=== PATIENT | female | born 1945 | race Caucasian/White ===

== ENCOUNTER 2019-03-20 10:13 | Day surgery (SDC) | payer MEDICARE, SELFPAY ==
[2019-03-19 13:13] VITALS: BMI 29.0
[2019-03-20 10:52] VITALS: BP 168/87; PULSE 80; RESP 17; TEMP 36.3; O2SAT 98
--- NOTE | 2019-03-20 11:16 | ANES.PREANES ---
Pre-Anesthetic Assessment Pre-Anesthetic Assessment: Height/Weight: Height 1.7 m Weight 83.915 kg Temp Pulse Resp BP Pulse Ox 97.4 F L 80 17 168/87 98 03/20/19 10:52 03/20/19 10:52 03/20/19 10:52 03/20/19 10:52 03/20/19 10:52 Preop Diagnosis: Abdominal wall wound Proposed Procedure: Operation Date: 03/20/19 11:55 Proposed Procedures p Debridement of anterior abdominal wall wound 42562 S31.109A(Not Applicable) - Bhargav Diaz MD Last intake: Intake Last Liquid Date 03/19/19 Last Liquid Time 19:00 Last Solid Date 03/19/19 Last Solid Time 19:00 Social: Comment: remote 50 years ago 2 pack years Exam: Pre-Anes Outpt Exam: alert, oriented x 3, clear to auscultation bilaterally and regular rate & rhythm Airway: Submandibular: WNL Cervical ROM: WNL MP: 1 Dentition: False Pulmonary: Pulmonary: Asthma Anesthetic Plan: ASA status: II PFSH Anesthesia PFSH: Social History (Updated 03/19/19 @ 13:10 by ArtBinder) Smoking and tobacco status: never smoked Alcohol intake: never Substance/Drug Use: never Adopted: No Caregiver/support person: Yes Lives independently: Yes Household members: spouse Housing: House Marital status: Highest education level completed: High School Graduate service: No Current occupational status: retired Current occupational exposures/hazards: No Pets and animals: Yes Pets & animals: cat(s) and dog(s) History of recent travel: No Sexually active: No Current gender identity: Female Marie/Evangelical: Spiritism Special marie needs: No Agree to transfusion: No Financial difficulty paying for basics: Decline to Answer Data Anesthesia Cardiac Studies: No Data to Display
--- NOTE | 2019-03-20 11:34 | PM.HPUD ---
H&P update H&P Update: DATE OF SURGERY/PROCEDURE: 03/20/19 DATE H&P PERFORMED: 03/15/19 H&P UPDATE INFORMATION: H&P completed within last 30 days and No changes to prior documentation PREOP DIAGNOSIS: Chronic abdominal wall wound with discharge PLANNED PROCEDURE: Operation Date: 03/20/19 11:55 Proposed Procedures p Debridement of anterior abdominal wall wound 51148 S31.109A(Not Applicable) - Bhargav Diaz MD Full H&P Perinent History: Family History: Family History (Updated 03/14/19 @ 12:07 by Trista Khan RN) Father Diabetes Denies family history of Anesthesia complication Bleeding disorder Social History: Social History Smoking and tobacco status: never smoked Alcohol intake: never Substance/Drug Use: never Adopted: No Caregiver/support person: Yes Lives independently: Yes Household members: spouse Housing: House Marital status: Highest education level completed: High School Graduate service: No Current occupational status: retired Current occupational exposures/hazards: No Pets and animals: Yes Pets & animals: cat(s) and dog(s) History of recent travel: No Sexually active: No Current gender identity: Female Marie/Hoahaoism: Islam Special marie needs: No Agree to transfusion: No Financial difficulty paying for basics: Decline to Answer
[2019-03-20] MEDS: clindamycin 600 MG/50 ML PREMIX 100 MG IV (11:57)
[2019-03-20] MEDS: lidocaine 2% INJ 20 mL INJECTION (12:10)
[2019-03-20] MEDS: neomycin-poly-bacitracin oint 28 gm 28 APPLIC (12:20)
--- NOTE | 2019-03-20 12:28 | PM.OP ---
Operative Report Date of procedure: 03/21/19 Pre-op Diagnosis: Chronic abdominal wall wound with discharge Post-op diagnosis: other Post-op Diagnosis: Stitch was revealed from the depth of the wound likely Ethibond Post sharp debridement measurement 3 x 2 x 2.2 cm debridement was done all the way to the subcutaneous layer Post-op Findings: Stitch sinus Procedure Done: Debridement of anterior abdominal wall wound Specimens removed/disposition: Tissues for cultures Stitch for pathology Surgeon: Bhargav Diaz Mobile Marketing Specialist: Chandni Khalil Circulating nurse Erica Anesthesia: MAC (dredge pipe operator Smart) and Local Estimated blood loss (mL): 5 Urine output (mL): 0 Complications: No immediate complication Findings: Stitch sinus Condition: stable Disposition: same day Brief History: This is a pleasant 73 years old female patient undergone remotely laparoscopic cholecystectomy by me, patient over the past couple of months or so started to develop a stitch sinus fever to the previous infraumbilical incision site and she did develop sutures coming out from the sinus, was not sure if this is related actually to the lap james surgery as it seems that the sinuses far down from the original incision, but I did world travel counselor the patient for wound debridement in the OR. Informed consent per Procedure: After identifying the patient holding area, the abdominal wound site was marked before the procedure by myself, patient was then taken to the operative suite, was placed in supine position, IV antibiotics were given per protocol,IV propofol was infused by the anesthesia provider, prep and drape of the wound region was done under the usual sterile technique. Time-out was done verifying the patient's name/date of /planned procedure and destination after the procedure, all were in agreement. Started by probing the sinus with mosquito forceps that went about centimeter and a half cephalad and about a centimeter caudad , that point I extended the sinus with a 15 blade knife following that excising the unhealthy indurated tissues of the wound took place and Ethibond-like suture was found that was removed and sent for pathology, sharp debridement was done all the way to the subcutaneous layer, followed by curettage, issues were sent for culture.Incision was created at the skin level and went all the way down to the subcutaneous tissues, wound was excised including unhealthy tissues Posterior lateral aspect of the right calf region Wound measurement ; Pre Debridement measurements; 0.2x0.2x0.5 Post-debridement measurement; 3 x 2 x 2[address] to the subcutaneous Debridement all the way to the healthier subcutaneous level Thorough irrigation of the wound was done with warm saline, followed by closure by Vicryl suture followed by continuous nylon suture then triple antibiotic ointment was applied followed by dry dressing. Patient tolerated the procedure well, count of instruments, needles and sponges were completed at the end of the procedure.Patient was then taken to the recovery area in stable condition. I was present for the whole entire procedure
[2019-03-20 12:32] VITALS: BP 129/70; PULSE 74; RESP 18; O2SAT 97
[2019-03-20 13:01] VITALS: BP 134/73; PULSE 74; RESP 18; O2SAT 98
[2019-03-20] MEDS: sodium chloride 0.9% 1,000 ML 30 ML IV (13:46)
== END 2019-03-20 13:30 | disposition home or self-care (01) ==
LOC: MEDSURG 12:46 → OR 13:03
PROVIDERS: Family Provider Registered Nurse; PCP Registered Nurse; Visit Provider Surgery
PROC: (CPT 11042; principal; 2019-03-20 11:55)
DX: S31.109A Unspecified open wound of abdominal wall, unspecified quadrant without penetration into peritoneal cavity, initial encounter (principal); X58.XXXA Exposure to other specified factors, initial encounter
CPT/HCPCS: 11042; 12345; 87070; 87077; 87176; 87186; 87205; 88305; J2001; J2704; J3010; J3490; J7030

== ENCOUNTER → 2019-04-20 11:08 | Outpatient (BNVA) | payer MEDICARE, SELFPAY | PROVIDERS: Family Provider Registered Nurse; PCP Registered Nurse; Visit Provider Registered Nurse | DX: S31.109A Unspecified open wound of abdominal wall, unspecified quadrant without penetration into peritoneal cavity, initial encounter (principal); X58.XXXA Exposure to other specified factors, initial encounter | CPT/HCPCS: 80053; 80061; 82306; 85025 ==

== ENCOUNTER → 2020-09-15 13:33 | Outpatient (BNVA) | payer MEDICARE, SELFPAY | PROVIDERS: Family Provider Registered Nurse; PCP Registered Nurse; Referring Provider Pediatrics; Visit Provider Orthopaedic Surgery | DX: M77.8 Other enthesopathies, not elsewhere classified (principal); M17.12 Unilateral primary osteoarthritis, left knee; M25.562 Pain in left knee | CPT/HCPCS: 73560; 73565 ==

== ENCOUNTER → 2020-10-14 11:10 | Day surgery (SDC) | payer MEDICARE, SELFPAY | PROVIDERS: PCP Registered Nurse; Visit Provider Orthopaedic Surgery | DX: Z01.818 Encounter for other preprocedural examination (principal) | CPT/HCPCS: 93005 ==

== ENCOUNTER → 2020-10-15 10:38 | Outpatient (BNVA) | payer MEDICARE, SELFPAY | PROVIDERS: PCP Registered Nurse; Visit Provider Orthopaedic Surgery | DX: Z01.812 Encounter for preprocedural laboratory examination (principal); Z20.822 Contact with and (suspected) exposure to COVID-19 | CPT/HCPCS: 87635 ==

== ENCOUNTER 2020-10-20 13:11 | Observation (INO) | payer MEDICARE, SELFPAY ==
--- NOTE | 2020-10-14 11:10 | ECG_ITS ---
[facility] Test Date: 2020-10-14 Pat Name: Radha Castillo Department: Room: Gender: Female Laboratory Sample Carrier: : 1945 Requested By: Dolores Marti Order Number: [id number] Saúl MD: Katelin Resendiz M.D. Measurements Intervals [place] Rate: 69 P: 25 VT: 132 QRS: -26 QRSD: 92 T: 48 QT: 392 QTc: 422 Interpretive Statements SINUS RHYTHM BORDERLINE LEFT AXIS DEVIATION [QRS AXIS < -20] LOW QRS VOLTAGE IN PRECORDIAL LEADS [QRS DEFLECTION < 1.0 mV IN CHEST LEADS] PATTERN CONSISTENT WITH PULMONARY DISEASE No previous ECG available for comparison Electronically Signed On 10-14-2020 16:41:20 CDT by Katelin Resendiz M.D. [id number]
[2020-10-14 11:13] VITALS: BMI 26.6
--- NOTE | 2020-10-14 11:45 | ANES.PREANE2 ---
Pre-Anesthetic Assessment Pre-Anesthetic Assessment: Height/Weight: Height 1.7 m Weight 77.111 kg Preop Diagnosis: Osteoarthritis Left knee Proposed Procedure: Operation Date: 10/20/20 10:30 Proposed Procedures p left total knee arthroplasty 12481 m17.12(Left) - Javier Menon MD Familial anesthetic complications: None Social: Social History: No alcohol and No tobacco Exam: Pre-Anes Outpt Exam: alert, oriented x 3, clear to auscultation bilaterally and regular rate & rhythm Airway: Cervical ROM: WNL MP: 2 Dentition: False Pulmonary: Pulmonary: Asthma (seasonal) CV/HEM: Comments: able to achieve Anesthetic Plan: ASA status: 1 Anesthesia: Regional (specify below) (spinal ) Risk of > 500 ml blood loss (7ml/kg in children): No PFSH Anesthesia PFSH: Medical History Asthma Surgical History History of laparoscopic cholecystectomy (~2017) History of tubal ligation Family History Father Diabetes Denies family history of Anesthesia complication Bleeding disorder Social History Smoking and tobacco status: never smoked Alcohol intake: never Adopted: No Caregiver/support person: Yes Lives independently: Yes Household members: spouse Housing: House Marital status: Highest education level completed: High School Graduate service: No Current occupational status: retired Current occupational exposures/hazards: No Pets and animals: Yes Pets & animals: cat(s) and dog(s) History of recent travel: No Sexually active: No Current gender identity: Female Marie/Yarsani: Congregation Special marie needs: No Agree to transfusion: No Financial difficulty paying for basics: Decline to Answer Data Anesthesia Cardiac Studies: No Data to Display
[2020-10-14 12:20] LABS: Add Urine Microscopic? NO; Charge for UA Resulting for Rev
[2020-10-14 12:33] LABS: Basophils # 0.1 10^3/uL (0.0-0.1); Basophils % 1.1 %; Eosinophils # 0.2 10^3/uL (0.0-0.8); Eosinophils % 2.4 %; Hematocrit 42.1 % (37.0-47.0); Hemoglobin 14.2 g/dL (11.5-15.3); Lymphocytes # 1.2 10^3/uL (0.8-4.8); Lymphocytes % 17.3 %; Mean Corpuscular HGB Conc 33.7 g/dL (30.0-36.0); Mean Corpuscular Hemoglobin 32.2 pg (28.0-34.0); Mean Corpuscular Volume 95.5 fl (81-99); Mean Platelet Volume 9.8 fL (7.4-10.4); Monocytes # 0.5 10^3/uL (0.2-0.9); Monocytes % 7.6 %; Neutrophils # 5.07 10^3/uL (1.8-7.7); Neutrophils % 71.3 %; Nucleated Red Blood Cells % 0 %; Platelet Count 235 10^3/cmm (130-400); Red Blood Count 4.41 10^6/uL (4.1-5.3); Red Cell Distribution Width 13.1 % (12.1-15.1); White Blood Count 7.1 10^3/uL (4.0-10.0)
[2020-10-14 12:42] LABS: Bilirubin Urine Neg (Negative); Blood Urine Neg (Negative); Glucose Urine UA Norm (Normal); Ketones Urine Negative (Negative); Leukocyte Esterase Urine Negative (Negative); Nitrate Urine Negative (Negative); Protein Urine Neg (Negative); Specific Gravity, Urine 1.005 (1.005-1.030); Urine Appearance Clear (CLEAR); Urine Color Straw (Yellow); Urobilinogen Urine Norm (Negative); pH Urine 5 (5-7)
[2020-10-14 12:58] LABS: Alanine Aminotransferase 8 U/L (0-33); Albumin Level 4.2 g/dL (3.5-5.2); Alkaline Phosphatase 72 IU/L (35-105); Anion Gap 11.9 (5-19); Aspartate Amino Transferase 22 U/L (0-32); Blood Urea Nitrogen 12 mg/dL (8-23); Calcium 9.3 mg/dL (8.5-10.5); Carbon Dioxide 27 mmol/L (22-29); Chloride 104 mmol/L (98-107); Creatinine Clr Calc Pharmacy 67.0392; Globulin 3.1 g/dL (1.3-4.6); Glucose 96 mg/dL (65-115); Osmolality Calculated 288 mOsm/kg (285-295); Potassium 3.9 mmol/L (3.5-5.1); Sodium 139 mmol/L (136-145); Total Bilirubin 0.4 mg/dL (0.15-1.2); Total Protein 7.3 g/dL (6.6-8.7)
[2020-10-20] VITALS (15 sets, daily range): BP systolic 82–148; BP diastolic 51–92; PULSE 62–72; RESP 14–21; TEMP 36.1–36.7; O2SAT 94–98; BMI 26.6
[2020-10-20] MEDS: acetaminophen 500 mg Tablet 1000 MG PO ×2 (09:03→16:53)
[2020-10-20] MEDS: gabapentin 300 mg Capsule PO ×2 (09:03→20:28)
[2020-10-20] MEDS: CELEcoxib 200 mg Capsule 400 MG PO (09:05)
[2020-10-20] MEDS: oxyCODONE 20 mg ER (12 HR) Tablet PO (09:06)
[2020-10-20] MEDS: sodium chloride 0.9% 1,000 ML 30 ML IV (09:21)
--- NOTE | 2020-10-20 10:24 | P.ANESUD_ITS ---
Pre-Anesthetic Update Pre-Anesthetic Assessment: Date of Surgery/Procedure: 10/20/20 Preop Lynnette gnosis: Osteoarthritis Left knee Proposed Procedure: Operation Date: 10/20/20 10:20 Proposed Procedures p left total knee arthroplasty 75645 m17.12(Left) - Javier Menon MD Any changes to Pre-Anesthetic Assessment?: No Last Intake: Intake Last Liquid Date 10/19/20 Last Liquid Time 19:00 Last Solid Date 10/19/20 Last Solid Time 19:00 Vitals: Temperature 97 F L 10/20/20 08:51 Temperature Source Temporal Artery S can 10/20/20 08:51 Respiratory Rate 18 10/20/20 09:06 Respiratory Effort 10/20/20 09:06 Respiratory Depth Normal 10/20/20 09:06 Blood Pressure 134/92 10/20/20 08:51 Blood Pressure Lucinda n 106 10/20/20 08:51 Oxygen Delivery Me thod 10/20/20 09:09 Exam: Pre-Anes Outpt Exam: alert, oriented x 3, clear to auscultation bilaterally and regular rate & rhythm Cardiac Studies: No Data to Display
--- NOTE | 2020-10-20 10:42 | W.PM.OPSFHP ---
Same Day Surgery H&P Indication for Procedure/HPI DATE OF PROCEDURE: October 20, 2020 CHIEF COMPLAINT/INDICATIONFOR SURGICAL PROCEDURE: Osteoarthritis left knee here for elective left total knee arthroplasty PREOP DIAGNOSIS: Osteoarthritis Left knee PLANNED PROCEDRUE: Operation Date: 10/20/20 10:20 Proposed Procedures p left total knee arthroplasty 34868 m17.12(Left) - Javier Menon MD Medications/Allergies* Home Medications Medication Instructions Recorded Confirmed Type multivitamin,bl-vwns-yfcqvsro 1 tab PO QDAY 03/15/19 10/14/20 History cholecalciferol (vitamin D3) 2,000 unit PO DAILY 03/19/19 10/14/20 History [Vitamin D3] montelukast 10 mg PO DAILY PRN 10/20/20 10/20/20 History Allergies/Adverse Reactions Allergy/AdvReac Type Severity Reaction Status Date / Time cephalexin [From Keflex] Allergy ALGY-Rash Verified 10/14/20 11:12 Current Medications: Generic Name Dose Route Start Last Admin Trade Name Freq PRN Reason Stop Dose Admin Sodium Chloride 1,000 mls @ 30 mls/hr 10/20/20 09:00 10/20/20 09:21 Sodium Chloride 0.9% IV 10/21/20 08:59 30 mls/hr .Q24H IKE Administration Pertinent History/Comorbid Conditions* Medical History (Updated 04/06/19 @ 13:10 by Bhargav Diaz MD) Asthma Surgical History (Updated 04/06/19 @ 13:10 by Bhargav Diaz MD) History of laparoscopic cholecystectomy (~2017) History of tubal ligation Family History (Updated 03/14/19 @ 12:07 by Trista Khan RN) Diabetes Father Denies family history of Anesthesia complication Bleeding disorder Social History Smoking and tobacco status: never smoked Alcohol intake: never Adopted: No Caregiver/support person: Yes Lives independently: Yes Household members: spouse Housing: House Marital status: Highest education level completed: High School Graduate service: No Current occupational status: retired Current occupational exposures/hazards: No Pets and animals: Yes Pets & animals: cat(s) and dog(s) History of recent travel: No Sexually active: No Current gender identity: Female Marie/Lutheran: Buddhist Special marie needs: No Agree to transfusion: No Financial difficulty paying for basics: Decline to Answer Pertinent Exam Findings alert, oriented x 3, clear to auscultation bilaterally, regular rate & rhythm and operative site marked Recommendations Surgery/Procedure today Coding Level of Care Code Acute Pump Servicer Supervisor for Ute Rae
[2020-10-20] MEDS: clindamycin 900 MG/50 ML PREMIX 100 MG IV ×2 (10:58→20:32)
[2020-10-20] MEDS: EPINEPHrine 1 mg/mL INJ XX (11:40)
[2020-10-20] MEDS: ketorolac 30 mg/mL INJ IVP (11:41)
[2020-10-20] MEDS: tranexamic acid 1,000 mg/10mL SDV 1000 MG IRRIGATION (11:42)
--- NOTE | 2020-10-20 12:49 | P.OP_ITS ---
Operative Report Date of procedure: October 20, 2020 Pre-op Diagnosis: Osteoarthritis Left knee Post-op diagnosis: same Post-op Findings: Same Procedure Done: Left total knee arthroplasty Pathology: none sent Surgeon: Javier Menon Anesthesia: Nerve Block (Spinal, adductor canal block) Estimated blood loss (mL): 100 Complications: None Findings: The patient had eburnated bone over the medial femoral condyle, medial tibial plateau, patella and trochlea Condition: stable Disposition: PACU Procedure: The patient was taken to the operating room. Patient was given 1 g of tranexamic acid . The above anesthesia provided by the anesthesia service. A timeout was performed. The patient was prepped and draped in the usual fashion with the lower extremity exposed. A anterior incision was made, midline, from a point proximal to the patella to the distal tibial tubercle. The knee was entered through a medial parapatellar approach. The patella could be displaced laterally and the knee flexed. The patellar fat pad was resected to provide better visibility. Retractors were placed medially and laterally adjacent to the tibial plateau. The femoral canal was drilled in line with the longitudinal axis of the femur. Intramedullary femoral guide for used to make a distal femoral cut in 5 degrees of valgus, resecting 8 mm from the more prominent condyle. Next the extra medullary tibial guide was placed in alignment with the longitudinal axis of the tibia. The cutting guides were set to remove just over 9 mm from the high tibial plateau. The proximal tibia was then cut. The femoral measuring guide was then placed over the distal femur. Rotation was verified checking the relationship of the guide to the condyle and the trochlear groove. The femur was measured and cut for the desired femoral component. The desired tibial baseplate was then chosen. A trial reduction with the femur tibial baseplate and polyethylene was done, assuring that the knee was stable throughout full motion. Ligament balancing a release of the deep medial collateral ligament and medial osteophyte.The tibia was prepared for the tibial baseplate. Patellar thickness was then measured. The patella was cut removing articular cartilage and prepared for appropriate size patellar button. surfaces were cleaned with a gentamicin/tranexamic acid solution. The femur tibia and patella were then press-fit into place. The posterior capsule and collateral ligaments were then injected with a solution of 100 mL of 0.2% ropivacaine, 1 mL of a 1:1000 epinephrine solution, 30 mg of Toradol, and 1 g of tranexamic acid. final polyethylene component was then snapped into place into the tibia. The extensor retinaculum was closed with a running 1 Stratafix.. The subcutaneous tissues were closed with 2-0 Vicryl and the skin was closed with a running 3-0 Stratafix. The wound was covered with a Dermabond Prinio dressing. It was covered with 4xrs and a compressive Tubigauae was applied. The patient was taken to recovery room in stable condition. [employer] total knee arthroplasty components were used includin) Size 6 triathalon cruciate retaining femoral component 2) Size 6 Tritanium tibial component 3) 32 mm /10 mm thickness Tritanium asymetric patella 4) Size 6/11 mm thickness CR tibial bearing insert
--- NOTE | 2020-10-20 12:55 | XR_ITS ---
WS: [id number] Exam: XR knee LT 1-2V [id number] Date/Time of Exam: 10/20/2020 12:58 PM Reason For Exam: Left Total knee arthroplasty A total knee prosthesis has been placed and is in excellent position. Postoperative changes in the ad jacent soft tissues. XR/XR knee LT 1-2V 74716 IMPRESSION: 1. Total joint replacement in excellent position.
--- NOTE | 2020-10-20 15:37 | ANE.PACU2 ---
Inpatient post-anesthesia follow up: Airway intact: Yes Vital signs: Temperature 97.8 F Pulse Rate 67 Respiratory Rate 15 Blood Pressure 103/57 Pulse Oximetry 98 Oxygen Delivery Me thod Room Air Oxygen Flow Rate Fraction of Inspir ed Oxygen Hydration adequate: Yes Nausea and vomiting: No Pain level: 2 Mental status: Baseline
[2020-10-20] MEDS: sodium chloride 0.9% 1,000 ML 100 ML IV (15:45)
[2020-10-20] MEDS: oxyCODONE 5 mg IR Tab/Cap PO ×2 (16:53→21:05)
--- NOTE | 2020-10-20 18:51 | PC.NURSE ---
Report to Patrick BOWLES at this time.
[2020-10-20] MEDS: CELEcoxib 200 mg Capsule PO (20:29)
[2020-10-21 00:27] VITALS: RESP 516
[2020-10-21] MEDS: acetaminophen 500 mg Tablet 1000 MG PO ×2 (00:27→08:00)
[2020-10-21] MEDS: oxyCODONE 5 mg IR Tab/Cap PO ×2 (00:27→08:00)
[2020-10-21] MEDS: sodium chloride 0.9% 1,000 ML 100 ML IV (00:30)
[2020-10-21 03:30] VITALS: BP 110/58; PULSE 63; RESP 16; TEMP 36.4; O2SAT 93
[2020-10-21] MEDS: clindamycin 900 MG/50 ML PREMIX 100 MG IV ×2 (03:50→12:07)
--- NOTE | 2020-10-21 05:59 | PC.NURSE ---
SHIFT SUMMARY Has not slept alot much tonight. Says she worked nights for years and has trouble sleeping usually. IV infusing without difficulty and receiving IV antibiotics. Has received scheduled Tylenol and X2 doses of po OXYIR. Says she doesn't really like the way the pain med makes her feel. Says feels elverkey. Up to BSC with assist and c/o some lightheadness/dizziness when she first gets up. Ambulated around in room some this am while up. Uses walker and doing well. She became a little tearful this am telling me that she does not like not being independent. Went on to say that she is tired Says she has been taking care of her for a month due to him having knee surgery. Left knee dressing D&I. Has had ice packs in place. Some swelling to left knee/leg. foot pumps in place. Compression sleeve to left leg. Says left gongora still feels a little numb. Neurovascular check WNL
[2020-10-21] MEDS: aspirin 325 mg EC Tablet PO (07:59)
[2020-10-21 08:00] VITALS: BP 134/70; PULSE 75; RESP 17; RESP 20; TEMP 36.6; O2SAT 97
[2020-10-21] MEDS: gabapentin 300 mg Capsule PO (08:00)
[2020-10-21] MEDS: CELEcoxib 200 mg Capsule PO (08:00)
--- NOTE | 2020-10-21 08:11 | P.PN_ITS ---
Subjective Subjective: Interval history: Complains of dizziness with oxycodone. Minimal pain. Good p.o. intake. Vitals/I&O/Wt Last Vital Signs Temp 97.5 F L 10/21/20 03:30 Pulse 63 10/21/20 03:30 Resp 20 H 10/21/20 08:00 BP 110/58 10/21/20 03:30 Pulse Ox 93 10/21/20 03:30 10/20/20 10/21/20 10/21/20 22:59 06:59 14:59 Intake Total 250 / 1410 1270 / 2680 Output Total 300 / 310 Balance 250 / 1400 970 / 2370 Weight last 48 hrs Weight 170 lb Physical Exam Narrative: EXAM NARRATIVE: Left knee dressing clean and dry Data : 10/21/20 06:58 10/14/20 11:34 A&P Assessment and plan (1) Osteoarthritis of left knee: Status: Acute (2) Status post left knee replacement: Will change oxycodone to hydrocodone. Continue therapy. Anticipate discharge today. Status: Acute Attestations Medical Necessity Statement*: We will discharge when tolerating pain medications and ambulatory with therapy. Coding Level of Care Code Acute Matrix Drier Tender for Ute Rae Diagnoses Osteoarthritis of left knee M17.12 Status post left knee replacement Z96.652
--- NOTE | 2020-10-21 09:02 | PC.CHAP ---
Pastoral Care Encounter/Spiritual Assessment Type of Contact [] Declined paver operator visit [] Patient/Family/Request visit [] Outpatient visit [] Follow-up visit [] Physician referral [] Code/Alert [v] Routine visit [] Staff referral [] Actively dying [] Patient sleeping [] Family support [] [] Out of room [] Palliative care [] [] Receiving care in room [] Pre-surgical visit [] Trauma [] Long length of stay [] ICU visit [] Other: Relational/Emotional Strength [x] Patient feels connected with others/family/visitors/staff [] Distress [] Loneliness/isolation [] Abandonment Spirituality of Patient [x] Person of Marie [x] Attends Episcopalian of their Marie [x] Believes in Prayer [] Reads Bible or Temple materials [] There are Spiritual issues to be addressed Nurse Technician Interventions [x] Prayer [x] Active listening [x] Non-anxious presence [] Spiritual/emotional support [] Crisis/trauma care [] Spiritual counseling [] Bereavement support [] Provided bereavement packet [] Provided Bible/devotional materials [] Provided toy/stuffed animal, coloring book to patient or family member [] Provided Communion [] Anointing/Delmar [] Salvation [x] Completed spiritual assessment [] Other: Impact on Illness or Injury [] Angry [] Fearful [] Anxious [] Often cries [] Exhaustion [] Unable to work [] Unable to attend caodaism [] Unable to walk/stand [] Unable to read [] Unable to drive [] Unable to eat/drink [] Unable to sleep [] Unable to be with family [] Patient intubated [] Other: Summary Time spent with patient 10 min
--- NOTE | 2020-10-21 11:53 | P.DS_ITS ---
Discharge Providers Date of Admission: 10/20/20 13:11 Date of Discharge: October 21, 2020 Attending Provider at Admission: Javier Menon MD Attending Provider at Discharge: Javier Menon MD Primary Care Provider: IRAJ Hurley Diagnoses at Discharge Discharge Diagnosis (1) Osteoarthritis of left knee: Status: Acute (2) Status post left knee replacement: Status: Acute Reason for Visit Reason for Visit: left total knee arthroplasty 00915 Hospital Course Hospital Course The patient tolerated surgery well. They remained hemodynamically stable. They was begun on aspirin and foot pumps for DVT prophylaxis. The patient was mobilized with therapy beginning the day of surgery and by the first postoperative day independent with the walker. As the pain was adequately controlled and they were fully mobile they were discharged home. Physical Exam Narrative: EXAM NARRATIVE: On the day of discharge his knee incision was clean. They had no drainage. There is minimal swelling in the thigh and knee and the calf. No distal neurovascular deficits were noted Discharge Data Data Completed and Pending: Completed Studies During Hospitalization Category Date Time Status XR knee LT 1-2V 7 3560 Routine Exams 10/20/20 12:55 Completed Labs from last 24 hours 10/21/20 06:58 Hgb 11.0 L Vitals: Last Vital Signs Temp 97.9 F 10/21/20 08:00 Pulse 75 10/21/20 08:00 Resp 17 10/21/20 08:00 BP 134/70 10/21/20 08:00 Pulse Ox 97 10/21/20 08:00 Discharge Plan Discharge Patient Disposition: Home Condition: Stable Prescriptions: New hydrocodone-acetaminophen 5-325 mg Tablet 1 tab PO Q4H PRN (Reason: Moderate Pain) Qty: 40 RF: 0 aspirin 325 mg Tablet,Delayed Release (Dr/Ec) 325 mg PO DAILY 30 Days RF: 0 gabapentin 300 mg Capsule 300 mg PO BID@0900,2100 7 Days RF: 0 acetaminophen 500 mg Tablet 500 mg PO Q8H 14 Days Qty: 42 RF: 0 celecoxib 200 mg Capsule 200 mg PO Q12H 14 Days Qty: 28 RF: 0 Continued Complete Multivitamin Tablet 1 tab PO QDAY RF: 0 cholecalciferol (vitamin D3) [Vitamin D3] 2,000 unit Tablet 2,000 unit PO DAILY RF: 0 montelukast 10 mg tablet 10 mg PO DAILY PRN (Reason: Allergic Symptoms) RF: 0 Discharge Orders: Discharge Order (Routine); Ordered 10/21/20 Ordered By: Javier Menon Other Ambulatory Orders: DME: Walker (Order) Location: None Selected Ordered By: Javier Menon Referrals: Javier Menon MD [Physician] - 10/24/20 8:00 am Discharge Diet: Advance as tolerated Discharge Activity: Limit activity as instructed Patient Instructions: Opioid Safety Activity Restrictions/Additional Instructions: Okay to shower. Do not need to change dressing and will stay Keep Tubigauze sleeve in place for swelling. Okay to remove for hygiene. Apply FirstIce up to 20 min/hr for pain and swelling Take Celebrex twice a day for the next 15 days for pain , discontinue other anti-inflammatories Take Neurontin twice a day for 7 days. Take Tylenol 500mg (1-2 tabs) as needed 3 times a day for mild pain take [place] for breakthrough pain. Exercises per physical therapy. May weight-bear as tolerated on total knee arthroplasty Discharge Attestations Time Spent in Discharge Care*: other Quality Metrics Clinical Quality Measures During this hospital stay, did patient experience: None Coding Level of Care Code Acute [facility] note Diagnoses Osteoarthritis of left knee M17.12 Status post left knee replacement Z96.652
[2020-10-21 12:00] VITALS: BP 125/66; PULSE 66; RESP 16; TEMP 36.5; O2SAT 98
[2020-10-21] MEDS: acetaminophen 500 mg Tablet PO (12:07)
[2020-10-21] MEDS: pneumococcal (23 valent) SDV 0.5 mL IM (13:26)
[2020-10-21 14:56] VITALS: BP 125/66; PULSE 66; RESP 16; TEMP 36.5; O2SAT 98
== END 2020-10-21 14:57 | disposition home or self-care (01) ==
LOC: MEDSURG 13:13
PROVIDERS: Anesthesiology; Admitting Provider Orthopaedic Surgery; PCP Registered Nurse; Visit Provider Orthopaedic Surgery
PROC: (CPT 27447; principal; 2020-10-20 10:10)
DX: M17.12 Unilateral primary osteoarthritis, left knee (principal); J45.909 Unspecified asthma, uncomplicated; E55.9 Vitamin D deficiency, unspecified; Z83.3 Family history of diabetes mellitus; Z23 Encounter for immunization
CPT/HCPCS: 27447; 36415; 64447; 73560; 76942; 80053; 81003; 85018; 85025; 90471; 90732; 97116; 97161; 97165; C1776; G0378; J0171; J1580; J1885; J2370; J2704; J2795; J3490; J7030

== ENCOUNTER → 2020-11-12 13:33 | Outpatient (BNVA) | payer MEDICARE, SELFPAY | PROVIDERS: PCP Registered Nurse; Visit Provider Orthopaedic Surgery | DX: Z48.89 Encounter for other specified surgical aftercare (principal) | CPT/HCPCS: 73560; 73565 ==

== ENCOUNTER → 2022-08-04 12:56 | Outpatient (BNVA) | payer MEDICARE, SELFPAY | PROVIDERS: PCP Registered Nurse; Referring Provider Nurse Practitioner Family; Visit Provider Internal Medicine | DX: E04.1 Nontoxic single thyroid nodule (principal); E03.9 Hypothyroidism, unspecified; Z79.890 Hormone replacement therapy | CPT/HCPCS: 99204 ==

== ENCOUNTER 2022-10-06 13:49 | Outpatient (CLI) | payer MEDICARE, SELFPAY ==
--- NOTE | 2022-10-06 14:07 | USCV_ITS ---
Radha Castillo Age: 77 Gender: F : 1945 Exam Date: 10/06/2022 14:29 Ordering Phys: Dolores Diane Technologist: KHANG Exam Location: [facility] [place] Indication: MURMUR BP: 130 / 70 HR: 69 Rhythm: Sinus Technical Quality: Adequate MEASUREMENTS (Male / Female) Normal Values 2D ECHO LVOT Diameter 2.0 cm LV Ejection Fraction MOD 2C 61.2 % LV Ejection Fraction 2C AL 60.7 % LA Diameter 3.3 cm LA Width 3.1 cm LA Height 4.3 cm RA Width 3.6 cm RA Height 4.5 cm Aorta at Sinotubular Diameter 2.7 cm IVC Diameter 1.3 cm M-MODE Aortic Annulus Diameter 2.2 cm LA Ao Ratio MM 1.7 MV E Point Septal Separation 0.7 cm DOPPLER AV Peak Velocity 309.3 cm/s LVOT Peak Velocity 111.0 cm/s AV Area Cont Eq vti 1.1 cm squared AV Area Cont Eq pk 1.1 cm squared MV Peak Velocity 141.0 cm/s MV Area PHT 4.0 cm squared Mitral E to A Ratio 1.0 MV E' Velocity 60.5 cm/s Mitral E to MV E' Ratio 13.7 Mitral E to LV E' Lateral Ratio 13.2 Mitral E to LV E' Septal Ratio 14.4 TR Peak Velocity 304.5 cm/s TR Peak Gradient 37.1 mmHg TR Mean Velocity 249.7 cm/s TR Mean Gradient 27.0 mmHg TR Velocity Time Integral 100.9 cm TV Peak E Velocity 49.0 cm/s Right Atrial Pressure 3.0 mmHg Pulmonary Artery Systolic Pressu 40.1 mmHg PV Peak Velocity 131.0 cm/s RV Acceleration Time 0.1 s RV Ejection Time 0.3 s RV AcT/ET 0.4 FINDINGS Left Ventricle Normal left ventricular size and systolic function, EF 58 %. Mild to moderate left ventricular hypertrophy. No regional wall motion abnormalities. Grade I/IV diastolic dysfunction (abnormal relaxation filling pattern), normal to mildly elevated filling pressures. Right Ventricle The right ventricle is normal in size and function. Right Atrium The right atrium is normal in size. Left Atrium Mildly increased left atrial size. Mitral Valve Thickened mitral valve. Mild mitral annular calcification. Moderate mitral valve regurgitation. Aortic Valve Moderate aortic valve stenosis, mean gradient 22 mmHg, ANCA 1.1 cm squared. Moderate aortic valve regurgitation. Moderate aortic valve calcification. Tricuspid Valve Mild tricuspid valve regurgitation. Estimated pulmonary artery peak systolic pressure 40 mm of Hg Pulmonic Valve No gross abnormalities no Pericardium No pericardial effusion. Aorta Normal ascending aorta dimension. IVC The inferior vena cava appears normal. CONCLUSIONS Normal left ventricular size and systolic function, EF 58 %. Mild to moderate left ventricular hypertrophy. No regional wall motion abnormalities. Grade I/IV diastolic dysfunction (abnormal relaxation filling pattern), normal to mildly elevated filling pressures. Moderate aortic valve stenosis, mean gradient 22 mmHg, ANCA 1.1 cm squared. Moderate aortic valve regurgitation. Moderate aortic valve calcification. Thickened mitral valve. Mild mitral annular calcification. Moderate mitral valve regurgitation. Mildly increased left atrial size. Mild tricuspid valve regurgitation. Estimated pulmonary artery peak systolic pressure 40 mm of Hg. There is no pericardial effusion. No similar previous studies are available for comparison Dr Emeli Menchaca MD [facility] (Electronically Signed) Final Date: 06 October 2022 17:33 S
== END 2022-10-06 13:50 | disposition home or self-care (01) ==
PROVIDERS: PCP Registered Nurse; Visit Provider Nurse Practitioner Family
DX: R01.1 Cardiac murmur, unspecified (principal); I35.2 Nonrheumatic aortic (valve) stenosis with insufficiency; I35.8 Other nonrheumatic aortic valve disorders; I34.81 Nonrheumatic mitral (valve) annulus calcification; I34.0 Nonrheumatic mitral (valve) insufficiency; I07.1 Rheumatic tricuspid insufficiency
CPT/HCPCS: 93306

== ENCOUNTER → 2022-11-16 15:19 | Outpatient (BNVA) | payer MEDICARE, SELFPAY | PROVIDERS: PCP Registered Nurse; Visit Provider Internal Medicine Cardiovascular Disease | DX: R94.31 Abnormal electrocardiogram [ECG] [EKG] (principal); R00.2 Palpitations; I10 Essential (primary) hypertension; R07.9 Chest pain, unspecified; R55 Syncope and collapse; E03.9 Hypothyroidism, unspecified; I35.2 Nonrheumatic aortic (valve) stenosis with insufficiency; R03.0 Elevated blood-pressure reading, without diagnosis of hypertension; R42 Dizziness and giddiness | CPT/HCPCS: 93005; 99204 ==

== ENCOUNTER → 2023-01-17 13:17 | Outpatient (BNVA) | payer MEDICARE, SELFPAY | PROVIDERS: PCP Registered Nurse; Visit Provider Nurse Practitioner Family | DX: I35.2 Nonrheumatic aortic (valve) stenosis with insufficiency (principal); I48.0 Paroxysmal atrial fibrillation | CPT/HCPCS: 99213 ==

== ENCOUNTER → 2023-02-03 12:40 | Outpatient (BNVA) | payer MEDICARE, SELFPAY | PROVIDERS: PCP Family Medicine; Visit Provider Internal Medicine | DX: E04.1 Nontoxic single thyroid nodule (principal); E03.9 Hypothyroidism, unspecified; I48.0 Paroxysmal atrial fibrillation; Z79.890 Hormone replacement therapy | CPT/HCPCS: 36415; 84439; 84443; 99214 ==

== ENCOUNTER → 2023-06-08 15:21 | Outpatient (BNVA) | payer MEDICARE, SELFPAY | PROVIDERS: PCP Family Medicine; Visit Provider Internal Medicine Cardiovascular Disease | DX: I35.2 Nonrheumatic aortic (valve) stenosis with insufficiency (principal); R03.0 Elevated blood-pressure reading, without diagnosis of hypertension; I48.0 Paroxysmal atrial fibrillation; E03.9 Hypothyroidism, unspecified | CPT/HCPCS: 99214 ==

== ENCOUNTER → 2023-12-06 13:53 | Outpatient (BNVA) | payer MEDICARE, SELFPAY | PROVIDERS: PCP Family Medicine; Visit Provider Internal Medicine Cardiovascular Disease | DX: I35.2 Nonrheumatic aortic (valve) stenosis with insufficiency (principal); R03.0 Elevated blood-pressure reading, without diagnosis of hypertension; E03.9 Hypothyroidism, unspecified; Z87.891 Personal history of nicotine dependence | CPT/HCPCS: 99214 ==